=== PATIENT | male | born 1950 | race Caucasian/White ===

== ENCOUNTER → 2019-09-10 10:04 | Outpatient (BNVA) | payer MEDICARE, SELFPAY | PROVIDERS: PCP Nurse Practitioner Family; Visit Provider Family Medicine | DX: E11.9 Type 2 diabetes mellitus without complications (principal); I10 Essential (primary) hypertension; E78.2 Mixed hyperlipidemia; Z12.5 Encounter for screening for malignant neoplasm of prostate | CPT/HCPCS: 80053; 80061; G0103 ==

== ENCOUNTER → 2019-12-17 09:49 | Outpatient (BNVA) | payer MEDICARE, SELFPAY | PROVIDERS: PCP Nurse Practitioner Family; Visit Provider Family Medicine | DX: E11.9 Type 2 diabetes mellitus without complications (principal) | CPT/HCPCS: 80053; 80061; 83036 ==

== ENCOUNTER → 2020-08-22 09:34 | Outpatient (BNVA) | payer MEDICARE, SELFPAY | PROVIDERS: PCP Nurse Practitioner Family; Visit Provider Family Medicine | DX: E11.9 Type 2 diabetes mellitus without complications (principal); I10 Essential (primary) hypertension; Z12.5 Encounter for screening for malignant neoplasm of prostate | CPT/HCPCS: 80053; 80061; 83036; 84443; 85025; G0103 ==

== ENCOUNTER 2022-07-30 12:15 | Outpatient (CLI) | payer MEDICARE, SELFPAY ==
--- NOTE | 2022-07-30 | XR_ITS ---
WS: [id number] Exam: XR lumbar spine f/e only [id number] Date/Time of Exam: 07/30/2022 12:59 PM Reason For Exam: VERTEBROGENIC LOW BACK PAIN There is mild degenerative anterolisthesis of L4 on L5 with about 6 mm forward movement of L4 during flexion. No other significant spondylolisthesis noted. There are large anterior osteophytes at all le vels. Degenerative vacuum disc at L5-S1. Facet arthropathy and bony sclerosis at all levels. XR/XR lumbar spine f/e only [id number] IMPRESSION: 1. Mild degenerative anterolisthesis of L4 on L5 with about 6 mm forward moveme nt of L4 during flexion. No other sign of flexion or extension instability. 2. Degenerative changes and spondylosis. Facet arthropathy.
== END 2022-07-30 12:16 | disposition home or self-care (01) ==
PROVIDERS: PCP Nurse Practitioner Family; Visit Provider Nurse Practitioner
DX: M54.51 Vertebrogenic low back pain (principal); M47.894 Other spondylosis, thoracic region
CPT/HCPCS: 72120